=== PATIENT | male | born 1955 | race Caucasian/White ===

== ENCOUNTER → 2017-06-16 | Outpatient (CLI) | payer MEDICARE, OTHER ==
[2017-06-16 11:26] LABS: Basophils # (A) 0.1 k/uL (0-0.2); Basophils % (A) 1 %; CH 32.9; CHCM 34.1; Eosinophils # (A) 0.1 k/uL (0-0.7); Eosinophils % (A) 2 %; HCT 44.5 % (39.0-53.0); HDW 2.41; Luc # (Auto) 0.11; Luc % (Auto) 2; Lymphocytes # (A) 1.2 k/uL (1.0-4.8); Lymphocytes % (A) 17 %; MCH 32.7 pg (25.0-35.0); MCHC 33.8 g/dL (31.0-37.0); MCV 96.8 fL (80.0-100.0); Mean Platelet Volume 6.8; Monocytes # (A) 0.5 k/uL (0-1.0); Monocytes % (A) 7 %; Neutrophils # (A) 5.1 k/uL (1.3-7.7); Neutrophils % (A) 72 %; WBC (Perox) 7.21
[2017-06-16 11:32] LABS: ALT 34 U/L (21-72); AST 19 U/L (17-59); Alkaline Phosphatase 76 U/L (38-126); Anion Gap 10 mmol/L; Blood Urea Nitrogen 11 mg/dL (9-20); Calcium 9.1 mg/dL (8.4-10.2); Carbon Dioxide 27 mmol/L (22-30); Chloride 100 mmol/L (98-107); Cholesterol 123 mg/dL (<200); Glucose 102 mg/dL (74-99); HDL Cholesterol 42 mg/dL (40-60); Non-African American GFR(MDRD) >60 (>60 ml/min/1.73 sqM); Potassium 4.2 mmol/L (3.5-5.1); Sodium 137 mmol/L (137-145); Total Bilirubin 0.5 mg/dL (0.2-1.3); Total Protein 6.4 g/dL (6.3-8.2); Uric Acid 5.3 mg/dL (3.5-8.5)
[2017-06-16 11:33] LABS: Appearance,Urine Clear (Clear); Bilirubin,Urine Negative (Negative); Glucose,Urine (UA) Negative (Negative); Ketones,Urine Negative (Negative); Leukocyte Esterase,Urine Negative (Negative); Nitrite,Urine Negative (Negative); Protein,Urine Negative (Negative); Specific Gravity,Urine 1.004 (1.001-1.035); UA Billing (MACRO vs. MICRO) CHEM; Urobilinogen,Urine <2.0 mg/dL (<2.0)
== END | disposition home or self-care (01) ==
LOC: LABWHC1 10:52
PROVIDERS: ATTEND Internal Medicine
DX: M10.9 Gout, unspecified (principal); I10 Essential (primary) hypertension
CPT/HCPCS: 36415; 80053; 80061; 81003; 84550; 85025

== ENCOUNTER → 2017-07-25 | Outpatient (CLI) | payer MEDICARE, OTHER ==
[2017-07-25 09:40] LABS: Appearance,Urine Clear (Clear); Bilirubin,Urine Negative (Negative); Glucose,Urine (UA) Negative (Negative); Ketones,Urine Negative (Negative); Leukocyte Esterase,Urine Negative (Negative); Nitrite,Urine Negative (Negative); PH, Urine 6.5 (5.0-8.0); Protein,Urine Negative (Negative); Specific Gravity,Urine 1.005 (1.001-1.035); UA Billing (MACRO vs. MICRO) CHEM; Urobilinogen,Urine <2.0 mg/dL (<2.0)
[2017-07-25 09:41] LABS: Basophils # (A) 0.1 k/uL (0-0.2); Basophils % (A) 1 %; CH 32.3; CHCM 33.8; Eosinophils # (A) 0.2 k/uL (0-0.7); Eosinophils % (A) 3 %; HCT 44.9 % (39.0-53.0); HDW 2.24; HGB 14.9 gm/dL (13.0-17.5); Luc # (Auto) 0.11; Luc % (Auto) 2; Lymphocytes # (A) 1.6 k/uL (1.0-4.8); Lymphocytes % (A) 23 %; MCH 31.9 pg (25.0-35.0); MCHC 33.2 g/dL (31.0-37.0); MCV 96.1 fL (80.0-100.0); Mean Platelet Volume 7.3; Monocytes # (A) 0.5 k/uL (0-1.0); Monocytes % (A) 8 %; Neutrophils # (A) 4.6 k/uL (1.3-7.7); Neutrophils % (A) 65 %; RBC 4.68 m/uL (4.30-5.90); RDW 13.4 % (11.5-15.5); WBC 7.1 k/uL (3.8-10.6); WBC (Perox) 7.15
[2017-07-25 09:54] LABS: INR 1.1 (<1.2); Partial Thromboplastin Time 26.4 sec (22.0-30.0); Prothrombin Time 11.2 sec (9.0-12.0)
[2017-07-25 10:07] LABS: ALT 42 U/L (21-72); AST 22 U/L (17-59); Alkaline Phosphatase 85 U/L (38-126); Anion Gap 8 mmol/L; Blood Urea Nitrogen 10 mg/dL (9-20); Calcium 9.2 mg/dL (8.4-10.2); Carbon Dioxide 29 mmol/L (22-30); Chloride 99 mmol/L (98-107); Glucose 102 mg/dL (74-99); Non-African American GFR(MDRD) >60 (>60 ml/min/1.73 sqM); Sodium 136 mmol/L (137-145); Total Bilirubin 0.6 mg/dL (0.2-1.3); Total Protein 6.1 g/dL (6.3-8.2)
--- NOTE | 2017-07-25 12:05 | XR ---
EXAMINATION TYPE: XR chest 2V DATE OF EXAM: 07/25/2017 COMPARISON: Prior chest x-ray 11/22/2014 HISTORY: Preop TECHNIQUE: Frontal and lateral views of the chest are obtained. FINDINGS: There is no focal air space opacity, pleural effusion, or pneumothorax seen. The cardiac silhouette size is within normal limits. The osseous structures are intact. Surgical clips present in the right upper quadrant. IMPRESSION: No acute cardiopulmonary process.
== END | disposition home or self-care (01) ==
LOC: LABPAT 08:41
PROVIDERS: ATTEND Orthopaedic Surgery Orthopaedic Surgery of the Spine
DX: Z01.818 Encounter for other preprocedural examination (principal); M48.00 Spinal stenosis, site unspecified; E11.65 Type 2 diabetes mellitus with hyperglycemia; Z79.01 Long term (current) use of anticoagulants; Z01.812 Encounter for preprocedural laboratory examination
CPT/HCPCS: 36415; 71020; 80053; 81003; 83036; 85025; 85610; 85730; 86850; 86900; 86901; 87070

== ENCOUNTER 2020-11-06 15:43 | Inpatient (IN) | payer MEDICARE, OTHER ==
[2020-11-06] MEDS ORDERED: NALOXONE 0.4 MG/ML 1 ML VIAL IV PRN (19:53)
[2020-11-06] MEDS ORDERED: HYDROmorphone 0.5 MG/0.5 ML SYRINGE IVP PRN (19:55)
[2020-11-06] MEDS ORDERED: TEMAZEPAM 15 MG CAP PO PRN (19:55)
[2020-11-06] MEDS ORDERED: ALPRAZolam 0.25 MG TAB PO PRN (19:55)
[2020-11-06] MEDS ORDERED: HYDROcodone/APAP 5-325MG 1 EACH TAB PO PRN (19:55)
[2020-11-06 20:10] LABS: Glucose,Whole Blood 155 mg/dL (75-99)
[2020-11-06 20:49] LABS: Basophils # (A) 0.1 k/uL (0-0.2); Basophils % (A) 1 %; Eosinophils # (A) 0.1 k/uL (0-0.7); Eosinophils % (A) 1 %; HCT 46.2 % (39.0-53.0); Lymphocytes # (A) 1.6 k/uL (1.0-4.8); Lymphocytes % (A) 15 %; MCH 32.1 pg (25.0-35.0); MCHC 34.6 g/dL (31.0-37.0); Mean Platelet Volume 6.6; Monocytes # (A) 0.7 k/uL (0-1.0); Monocytes % (A) 7 %; Neutrophils # (A) 8.3 k/uL (1.3-7.7); Neutrophils % (A) 77 %; Platelet Count 265 k/uL (150-450); RBC 4.96 m/uL (4.30-5.90); RDW 13.1 % (11.5-15.5); WBC 10.9 k/uL (3.8-10.6)
[2020-11-06] MEDS: INSULIN ASPART (NovoLOG) 100 UNIT/ML VIAL SQ SCH (20:57)
[2020-11-06 20:58] LABS: ALT 24 U/L (4-49); AST 21 U/L (17-59); African American GFR (CKD) >90 (>60 ml/min/1.73 sqM); Albumin 3.8 g/dL (3.5-5.0); Albumin/Globulin Ratio 1.5; Alkaline Phosphatase 97 U/L (38-126); Amylase 43 U/L (30-110); Anion Gap 7 mmol/L; Blood Urea Nitrogen 11 mg/dL (9-20); Calcium 9.1 mg/dL (8.4-10.2); Carbon Dioxide 31 mmol/L (22-30); Chloride 97 mmol/L (98-107); Globulin 2.5 g/dL; Glucose 147 mg/dL (74-99); Lipase 80 U/L (23-300); Non-African American GFR(CKD) 82 (>60 ml/min/1.73 sqM); Potassium 3.8 mmol/L (3.5-5.1); Sodium 135 mmol/L (137-145); Total Bilirubin 0.7 mg/dL (0.2-1.3); Total Protein 6.3 g/dL (6.3-8.2)
[2020-11-06 21:09] LABS: Creatine Kinase MB 2.3 ng/mL (0.0-2.4); Troponin I <0.012 ng/mL (0.000-0.034)
--- NOTE | 2020-11-06 21:53 | HP ---
HISTORY AND PHYSICAL DATE OF SERVICE: 11/06/2020 CHIEF COMPLAINT: Chest pain. HISTORY OF PRESENT ILLNESS: This 64-year-old gentleman with a past medical history of multiple medical problems, including diabetes mellitus, hypertension, history of musculoskeletal disorder, history of gout, history of hypothyroidism, history of back surgery, cholecystomy, being followed by Dr. Del Rosario in the outpatient setting, was complaining of chest pain. The patient's chest pain was felt in the anterior part of the chest and was unrelenting, according to him. The patient went to [facility]. Apparently a stress test was done which was positive. The patient was seen by Dr. Saldana previously. A cardiac catheterization was not done, but the patient would like to stay with the cardiology group in the area. Dr. Escobar, the hospitalist from [facility], called me over the phone and the patient was directly transferred to [facility] for further evaluation and treatment at this time. There is no history of any fever, rigor or chills. No history of headache, loss of consciousness, seizures at this time. PAST MEDICAL HISTORY: Diabetes mellitus, hypertension, musculoskeletal disorder, hypothyroidism, gout. HOME MEDICATIONS: Glipizide, zyloprim, Senokot, Invega, Lopressor, Zestoretic, Tradjenta, Motrin, [place], Neurontin, Cogentin, aspirin. Medications are not confirmed. The doses are reviewed. ALLERGIES: IODINATED CONTRAST DYES. FAMILY HISTORY: History of coronary artery disease. SOCIAL HISTORY: No history of smoking. No history of alcohol intake. REVIEW OF SYSTEMS: ENT: No diminished hearing. No diminished vision. CARDIOVASCULAR SYSTEM: As mentioned earlier. RESPIRATORY SYSTEM: As mentioned earlier. GI: No nausea, vomiting, diarrhea. : No dysuria or retention. NERVOUS SYSTEM: No numbness, weakness. ALLERGY/IMMUNOLOGY: No asthma, hayfever. MUSCULOSKELETAL: As mentioned earlier. HEMATOLOGY/ONCOLOGY: No history of anemia. ENDOCRINE: As mentioned earlier. CONSTITUTIONAL: As mentioned earlier. DERMATOLOGY: Negative. RHEUMATOLOGY: Negative. PSYCHIATRY: As mentioned earlier. PHYSICAL EXAMINATION: Patient is alert, oriented x3. Pulse 95, blood pressure 136/83, respiration 19, temperature 98.1, pulse ox 97% on room air. HEENT: Conjunctivae normal. NECK: No jugular venous distention. CARDIOVASCULAR SYSTEM: S1, S2 muffled. RESPIRATORY SYSTEM: Breath sounds diminished at the bases. No rhonchi. No crackles. ABDOMEN: Soft, obese, non-tender. No mass palpable. LEGS: No edema. No swelling. NERVOUS SYSTEM: Higher functions as mentioned earlier. Moves all 4 limbs. No focal motor or sensory deficit. LYMPHATICS: No lymph node palpable in neck, axillae or groin. SKIN: No ulcer, rash, bleeding. JOINTS: No active deforming arthropathy. LABS: Labs are awaited at this time. ASSESSMENT: 1. Chest pain, possible unstable angina. 2. Positive stress test recently. 3. Diabetes mellitus, type 2. 4. Hypertension. 5. History of degenerative joint disease. 6. Hypothyroidism. 7. History of gout. 8. History of back surgery. 9. History of cholecystectomy. 10.History of laminectomy. 11.History of schizophrenia. 12.History of paranoid delusions. 13.Obesity. RECOMMENDATIONS AND DISCUSSION: In this 64-year-old gentleman who presented with multiple complex medical issues, we will monitor the patient closely, continue the current medications, continue symptomatic treatment. Otherwise, we will rule out myocardial infarction and cardiology consultation, possible cardiac cath. The home medications will be ordered once they are confirmed. Prognosis guarded because of the multiple complex medical issues. Further recommendations to follow. A copy of this dictation is being forwarded to Dr. Del Rosario, who is the primary physician. MMODL / IJN: [id number] /
[2020-11-06 22:16] LABS: Appearance,Urine Clear (Clear); Bilirubin,Urine Negative (Negative); Blood,Urine Negative (Negative); Color,Urine Light Yellow; Glucose,Urine (UA) Negative (Negative); Ketones,Urine Negative (Negative); Leukocyte Esterase,Urine Negative (Negative); Nitrite,Urine Negative (Negative); Protein,Urine Negative (Negative); Specific Gravity,Urine 1.009 (1.001-1.035); Urobilinogen,Urine <2.0 mg/dL (<2.0)
[2020-11-07] MEDS ORDERED: ACETAMINOPHEN TAB 325 MG TAB PO PRN (00:44)
[2020-11-07] MEDS ORDERED: NITROGLYCERIN SL TABS 0.4 MG TAB SUBLINGUAL PRN ×2 (00:44→10:04)
[2020-11-07] MEDS ORDERED: IBUPROFEN 800 MG TAB PO PRN (01:00)
[2020-11-07] MEDS ORDERED: AMOXIC-POT CLAV 875-125MG 1 EACH TAB PO SCH (07:00)
[2020-11-07] MEDS ORDERED: PANTOPRAZOLE 40 MG TABLET PO SCH (07:30)
[2020-11-07 07:34] LABS: Glucose,Whole Blood 144 mg/dL (75-99)
[2020-11-07] MEDS ORDERED: MAGNESIUM HYDROXIDE 2,400 MG/10 ML CUP PO PRN (09:00)
[2020-11-07] MEDS ORDERED: polyethylene glycoL 3350 17 GM POWD.PACK PO PRN (09:00)
[2020-11-07] MEDS ORDERED: glipiZIDE 5 MG TAB PO SCH (09:00)
[2020-11-07] MEDS ORDERED: ASPIRIN 81 MG PO SCH ×2 (09:00)
[2020-11-07] MEDS ORDERED: LISINOPRIL-HCTZ 20-12.5 MG 1 EACH TAB PO SCH (09:00)
[2020-11-07] MEDS ORDERED: allopurinoL 300 MG TAB PO SCH (09:00)
[2020-11-07] MEDS ORDERED: LINAGLIPTIN 5 MG TABLET PO SCH (09:00)
[2020-11-07] MEDS ORDERED: PALIPERIDONE 3 MG TAB.ER.24 PO SCH (09:00)
[2020-11-07] MEDS ORDERED: LORATADINE 10 MG TAB PO SCH (09:00)
[2020-11-07] MEDS ORDERED: SENNOSIDES 8.6 MG TAB PO SCH (09:00)
[2020-11-07] MEDS ORDERED: GABAPENTIN 100 MG CAP PO SCH (09:00)
[2020-11-07] MEDS ORDERED: BENZTROPINE MESYLATE 1 MG TAB PO SCH (09:00)
[2020-11-07 09:04] LABS: African American GFR (CKD) 104.2 (60.0-200.0); Anion Gap 9.7 mmol/L (4.00-12.00); BUN/Creat Ratio 13.33 Ratio (12.00-20.00); Calcium 8.9 mg/dL (8.7-10.3); Carbon Dioxide 26.3 mmol/L (21.6-31.8); Non-African American GFR(CKD) 89.9 (60.0-200.0)
[2020-11-07 09:17] LABS: Basophils # (A) 0.09 X 10*3/uL (0.00-0.10); Basophils % (A) 0.7 %; Eosinophils # (A) 0.21 X 10*3/uL (0.04-0.35); Eosinophils % (A) 1.7 %; HCT 46.5 % (39.6-50.0); HGB 15.6 g/dL (13.0-17.0); Lymphocytes # (A) 2.64 X 10*3/uL (0.90-5.00); Lymphocytes % (A) 21.8 %; MCH 31.5 pg (27.0-32.0); MCHC 33.5 g/dL (32.0-37.0); MCV 93.9 fL (80.0-97.0); Mean Platelet Volume 9.5 fL (9.5-12.2); Monocytes % (A) 8.3 %; Neutrophils # (A) 8.12 X 10*3/uL (1.80-7.70); Neutrophils % (A) 67.3 %; Platelet Count 298 X 10*3/uL (140-440); RBC 4.95 X 10*6/uL (4.40-5.60); RDW 12.6 % (11.5-14.5); WBC 12.09 X 10*3/uL (4.50-10.00)
[2020-11-07] MEDS ORDERED: ALPRAZolam 0.5 MG TAB PO PRN (10:04)
[2020-11-07] MEDS ORDERED: ALPRAZolam 0.25 MG TAB PO PRN (10:04)
[2020-11-07] MEDS ORDERED: ASPIRIN 325 MG TAB PO STA (10:04)
[2020-11-07] MEDS ORDERED: SODIUM CHLORIDE 0.9% 1,000 ML in EMPTY BAG 1 BAG IV ONE (10:04)
[2020-11-07] MEDS ORDERED: ATORVASTATIN 80 MG TAB PO STA (10:04)
[2020-11-07] MEDS: INSULIN ASPART (NovoLOG) 100 UNIT/ML VIAL SQ SCH ×2 (10:16→12:37)
--- NOTE | 2020-11-07 10:42 | P.CRDCN ---
History of Present Illness Consult date: 11/07/20 History of present illness: CHIEF COMPLAINT: Chest pain HISTORY OF PRESENT ILLNESS: This is a 64-year-old male with a past medical history significant for schizophrenia, hypertension, hyperlipidemia, and diabetes mellitus. Patient used to follow in the office with Dr. Saldana. We have been asked to see the patient in consultation for chest pain. Patient originally presented to [facility] with the complaint of chest pain. Patient states he began having chest pain 2 days ago. He states the pain was in the middle of his chest and was sharp. He denied any other associated symptoms. He states the pain was fairly constant over the last 2 days. At the time of examination this morning, the patient reports mild chest discomfort. Patient underwent a Lexiscan stress test at [facility] revealing evidence of pharmacological-induced stress ischemia of the anterior wall and estimated ejection fraction of 71%. Telemetry tracings review sinus mechanism. Laboratory data reveals WBC 12.0. Hemoglobin 15.6. Platelet count 298. Sodium 135. Potassium 4.0. BUN 12. Creatinine 0.9. Magnesium 2.0. Troponin negative 1. Current home cardiac medications include metoprolol 25 mg at night, lisinopril-hctz 20-12.5mg daily, Lipitor 10 mg daily, and aspirin 81 mg daily. REVIEW OF SYSTEMS: At the time of my exam: CONSTITUTIONAL: Denies fever or chills. HEENT: Denies blurred vision, vision changes, or eye pain. Denies hemoptysis CARDIOVASCULAR: Denies chest pain, orthopnea, PND or palpitations RESPIRATORY: No shortness of breath. GASTROINTESTINAL: Denies abdominal pain. Denies nausea or vomiting. HEMATOLOGIC: Denies bleeding disorders. GENITOURINARY: Denies any blood in urine. SKIN: Denies pruitis. Denies rash. PHYSICAL EXAM: VITAL SIGNS: Reviewed. GENERAL: Well-developed in no acute distress. HEENT: Head is normocephalic. Pupils are equal, round. Sclerae anicteric. Mucous membranes of the mouth are moist. Neck supple. No JVD or thyromegaly LUNGS: Respirations even and unlabored. Lungs essentially clear to auscultation bilaterally. HEART: Regular rate and rhythm. S1 and S2 heard. ABDOMEN: Soft. Nondistended. Nontender. EXTREMITIES: Normal range of motion. No clubbing or cyanosis. Peripheral pulses intact. No lower extremity edema NEUROLOGIC: Awake and alert. Oriented x 3. ASSESSMENT: Chest pain with abnormal stress test revealing ischemia of anterior wall Hypertension Hyperlipidemia Diabetes mellitus Schizophrenia Morbid obesity BMI 44.7 PLAN: Resume home cardiac medications Patient to undergo cardiac cath today with Dr. Gill Nurse practitioner note has been reviewed by physician. Signing provider agrees with the documented findings, assessment, and plan of care. Past Medical History Past Medical History: Diabetes Mellitus, Hypertension, Musculoskeletal Disorder, Thyroid Disorder Additional Past Medical History / Comment(s): hx. gout History of Any Multi-Drug Resistant Organisms: None Reported Past Surgical History: Back Surgery, Cholecystectomy Additional Past Surgical History / Comment(s): epidural pain procedures, 11/30/14 laminectomy Past Anesthesia/Blood Transfusion Reactions: No Reported Reaction Past Psychological History: Schizophrenia Additional Psychological History / Comment(s): paranoid delusions Smoking Status: Former smoker Past Alcohol Use History: None Reported Past Drug Use History: None Reported - Past Family History Father Family Medical History: Coronary Artery Disease (CAD) Mother Family Medical History: Hypertension Medications and Allergies Home Medications Medication Instructions Recorded Confirmed Type Benztropine Mesylate [Cogentin] 2 mg PO BID 11/28/14 11/06/20 History Gabapentin [Neurontin] 100 mg PO TID 11/28/14 11/06/20 History Ibuprofen [Motrin] 800 mg PO Q8H PRN 11/28/14 11/06/20 History Metoprolol Tartrate [Lopressor] 25 mg PO HS 11/28/14 11/06/20 History Sennosides [Senokot] 8.6 mg PO BID 11/28/14 11/06/20 History allopurinoL [Zyloprim] 300 mg PO DAILY 11/28/14 11/06/20 History Aspirin [Adult Low Dose Aspirin EC] 81 mg PO DAILY 07/28/17 11/06/20 History Linagliptin [Tradjenta] 5 mg PO DAILY 07/28/17 11/06/20 History Acetaminophen [Tylenol] 650 mg PO Q4-6H PRN 11/06/20 11/06/20 History Amoxic-Pot Clav 875-125Mg 1 tab PO BID@0700,1900 11/06/20 11/06/20 History [Augmentin 875-125] Atorvastatin Calcium [Lipitor] 10 mg PO HS 11/06/20 11/06/20 History Cholecalciferol [Vitamin D3 (25 50 mcg PO HS 11/06/20 11/06/20 History Mcg = 1000 Iu)] Ibuprofen [Motrin Ib] 200 - 400 mg PO Q6H PRN 11/06/20 11/06/20 History Lisinopril-Hctz 20-12.5 mg 1 tab PO DAILY 11/06/20 11/06/20 History [Zestoretic 20-12.5] Loperamide HCl [Imodium A-D] 2 - 4 mg PO QID PRN 11/06/20 11/06/20 History Loratadine 10 mg PO DAILY 11/06/20 11/06/20 History Magnesium Hydroxide [Milk of 2,400 mg PO DAILY PRN 11/06/20 11/06/20 History Magnesia] Nitroglycerin Sl Tabs [Nitrostat] 0.4 mg SL Q5M PRN 11/06/20 11/06/20 History Paliperidone [Invega] 9 mg PO DAILY 11/06/20 11/06/20 History glipiZIDE XL [Glucotrol Xl] 10 mg PO DAILY 11/06/20 11/06/20 History polyethylene glycoL 3350 [Miralax] 17 gm PO DAILY PRN 11/06/20 11/06/20 History Allergies Allergy/AdvReac Type Severity Reaction Status Date / Time Iodinated Contrast Media Allergy Anaphylaxis Verified 11/06/20 19:45 [Iodinated Contrast- Oral and IV Dye] Physical Exam Vitals: Vital Signs Temp Pulse Resp BP Pulse Ox 11/07/20 07:00 97.4 F L 90 18 151/83 97 11/07/20 02:00 98.3 F 79 16 143/76 95 11/06/20 20:00 98.2 F 81 16 131/93 98 11/06/20 18:34 98.1 F 95 19 136/83 97 Intake and Output 11/06/20 11/07/20 11/07/20 22:59 06:59 14:59 Output Total 300 Balance -300 Output: Urine 300 Other: Voiding Method Toilet Toilet Toilet # Voids 1 1 Weight 149.5 kg Results 11/07/20 04:44 11/07/20 04:44 Cardiac Enzymes 11/06/20 11/06/20 Range/Units 20:10 20:10 AST 21 (17-59) U/L CK-MB (CK-2) 2.3 (0.0-2.4) ng/mL Troponin I <0.012 (0.000-0.034) ng/mL Coagulation 11/06/20 Range/Units 20:10 PT 11.0 (9.0-12.0) sec CBC 11/06/20 11/07/20 Range/Units 20:10 04:44 WBC 10.9 H 12.09 H (3.8-10.6) k/uL RBC 4.96 4.95 (4.30-5.90) m/uL Hgb 16.0 15.6 (13.0-17.5) gm/dL Hct 46.2 46.5 (39.0-53.0) % Plt Count 265 298 (150-450) k/uL Comprehensive Metabolic Panel 11/06/20 11/07/20 Range/Units 20:10 04:44 Sodium 135 L 135 (137-145) mmol/L Potassium 3.8 4.0 (3.5-5.1) mmol/L Chloride 97 L 99 (98-107) mmol/L Carbon Dioxide 31 H 26.3 (22-30) mmol/L BUN 11 12.0 (9-20) mg/dL Creatinine 0.98 0.9 (0.66-1.25) mg/dL Glucose 147 H 132 H (74-99) mg/dL Calcium 9.1 8.9 (8.4-10.2) mg/dL AST 21 (17-59) U/L ALT 24 (4-49) U/L Alkaline Phosphatase 97 (38-126) U/L Total Protein 6.3 (6.3-8.2) g/dL Albumin 3.8 (3.5-5.0) g/dL Current Medications Generic Name Dose Route Start Last Admin Trade Name Freq PRN Reason Stop Dose Admin Acetaminophen 650 mg 11/07/20 00:44 Acetaminophen Tab 325 Mg Tab PO Q6H PRN Fever and/ or Pain Hydrocodone Bitart/Acetaminophen 1 each 11/06/20 19:55 Hydrocodone/Apap 5-325mg 1 Each Tab PO Q6HR PRN Pain Allopurinol 300 mg 11/07/20 09:00 Allopurinol 300 Mg Tab PO DAILY NANDINI Alprazolam 0.25 mg 11/07/20 10:04 Alprazolam 0.25 Mg Tab PO Q6HR PRN Mild Anxiety Alprazolam 0.5 mg 11/07/20 10:04 Alprazolam 0.5 Mg Tab PO Q6HR PRN Moderate Anxiety Amoxicillin/Clavulanate Potassium 1 each 11/07/20 07:00 11/07/20 06:16 Amoxic-Pot Clav 875-125mg 1 Each Tab PO 1 each BID@0700,1900 [facility] Administration Aspirin 81 mg 11/07/20 09:00 11/07/20 10:17 Aspirin 81 Mg PO Not Given DAILY [facility] Atorvastatin Calcium 10 mg 11/07/20 21:00 Atorvastatin 10 Mg Tab PO HS [facility] Benztropine Mesylate 2 mg 11/07/20 09:00 Benztropine Mesylate 1 Mg Tab PO BID [facility] Cholecalciferol 50 mcg 11/07/20 21:00 Cholecalciferol 25 Mcg (1000 Iu) Tablet PO HS [facility] Gabapentin 100 mg 11/07/20 09:00 Gabapentin 100 Mg Cap PO TID [facility] Glipizide 5 mg 11/07/20 09:00 Glipizide 5 Mg Tab PO BID [facility] Lisinopril/HCTZ 1 each 11/07/20 09:00 Lisinopril-Hctz 20-12.5 Mg 1 Each Tab PO DAILY [facility] Hydromorphone HCl 0.5 mg 11/06/20 19:55 Hydromorphone 0.5 Mg/0.5 Ml Syringe IVP Q6HR PRN Severe Pain Sodium Chloride 1,000 ml/ IV 1,000 mls @ 149.5 mls/hr 11/07/20 10:04 Solution IV 11/07/20 16:45 .Q6H42M ONE 1 ML/KG/HR Heparin Sodium (Porcine) 10, 1,001 mls @ 999 mls/hr 11/08/20 07:00 000 unit/ Sodium Chloride IRRIGATION 11/08/20 23:00 ONCE PRN INTRA-OP Heparin Sodium (Porcine) 2,500 250.5 mls @ 250 mls/hr 11/08/20 07:00 unit/ Sodium Chloride IRRIGATION 11/08/20 23:00 ONCE PRN INTRA-OP Ibuprofen 800 mg 11/07/20 01:00 Ibuprofen 800 Mg Tab PO Q8H PRN Pain Insulin Aspart 0 unit 11/06/20 21:00 11/07/20 10:16 Insulin Aspart (Novolog) 100 Unit/Ml Vial SQ Not Given ACHS [facility] Protocol Linagliptin 5 mg 11/07/20 09:00 Linagliptin 5 Mg Tablet PO DAILY [facility] Loratadine 10 mg 11/07/20 09:00 Loratadine 10 Mg Tab PO DAILY [facility] Magnesium Hydroxide 2,400 mg 11/07/20 09:00 Magnesium Hydroxide 2,400 Mg/10 Ml Cup PO DAILY PRN Constipation Metoprolol Tartrate 25 mg 11/07/20 21:00 Metoprolol Tartrate 25 Mg Tab PO HS [facility] Naloxone HCl 0.2 mg 11/06/20 19:53 Naloxone 0.4 Mg/Ml 1 Ml Vial IV Q2M PRN Opioid Reversal Nitroglycerin 0.4 mg 11/07/20 00:44 Nitroglycerin Sl Tabs 0.4 Mg Tab SUBLINGUAL Q5M PRN Chest Pain Paliperidone 9 mg 11/07/20 09:00 Paliperidone 3 Mg Tab.Er.24 PO DAILY [facility] Pantoprazole Sodium 40 mg 11/07/20 07:30 Pantoprazole 40 Mg Tablet PO AC-BRKFST [facility] Polyethylene Glycol 17 gm 11/07/20 09:00 Polyethylene Glycol 3350 17 Gm Powd.Pack PO DAILY PRN Constipation Senna 8.6 mg 11/07/20 09:00 Sennosides 8.6 Mg Tab PO BID [facility] Temazepam 15 mg 11/06/20 19:55 Temazepam 15 Mg Cap PO HS PRN Insomnia Intake and Output 11/06/20 11/07/20 11/07/20 22:59 06:59 14:59 Output Total 300 Balance -300 Output: Urine 300 Other: Voiding Method Toilet Toilet Toilet # Voids 1 1 Weight 149.5 kg 11/07/20 04:44 11/07/20 04:44
[2020-11-07] MEDS ORDERED: IV FLUID CONTINUATION 900 ML IV ONE (11:04)
[2020-11-07] MEDS ORDERED: methylPREDNISolone SOD SUCCI 125 MG/2 ML VIAL IVP ONE (11:05)
[2020-11-07] MEDS ORDERED: diphenhydrAMINE 50 MG/ML 1 ML VIAL IVP ONE (11:05)
[2020-11-07] MEDS ORDERED: fentaNYL (PF) 50 MCG/ML 2 ML AMP IVP ONE (11:08)
[2020-11-07] MEDS ORDERED: MIDAZOLAM 2 MG/2 ML VIAL IVP ONE (11:08)
[2020-11-07] MEDS ORDERED: LIDOCAINE 1% INJ 10MG/ML (20 ML MDV) SQ ONE (11:10)
[2020-11-07] MEDS: VERAPAMIL SYRINGE (5 MG/10 ML) INTRAARTER ONE ×2 (11:12→11:18)
[2020-11-07] MEDS ORDERED: HEPARIN SODIUM 1,000 UN/ML (10ML VL) IV ONE (11:16)
[2020-11-07] MEDS ORDERED: IOPAMIDOL-370 125ML BTL INJ ONE (11:18)
[2020-11-07] MEDS ORDERED: RX INFO: IV CONTRAST WAS GIVEN 1 EACH MISC MISCELLANE PRN (11:26)
[2020-11-07] MEDS ORDERED: SODIUM CHLORIDE 0.9% 1,000 ML IV SCH (11:30)
[2020-11-07 11:41] VITALS: RESP 16
[2020-11-07 11:43] LABS: Glucose,Whole Blood 174 mg/dL (75-99)
--- NOTE | 2020-11-07 11:58 | CC ---
CARDIAC CATHETERIZATION REPORT DATE OF SERVICE: November 07, 2020 PERFORMING PHYSICIAN: Angelito Gill MD. PROCEDURE PERFORMED: Selective right and left coronary angiogram. INDICATION: This is a 64-year-old gentleman with diabetes and hypertension and dyslipidemia who was admitted with chest discomfort and underwent myocardial perfusion imaging stress test and that came into be abnormal and because of that, a heart catheterization was advised. APPROACH: Right radial artery. COMPLICATION: None. LEVEL OF SEDATION: Moderate with sedation length of 11 minutes. PROCEDURE DESCRIPTION: After obtaining an informed consent, the patient was brought to the cardiac cardiac cath rn. The right radial artery was cannulated using micropuncture technique. The micropuncture wire passed easily then I placed a 6-Indian sheath at the right radial artery. After that I did give the patient 2 mg of verapamil IA and 10,000 units of heparin IV. Selective right and left coronary angiogram performed with JR4 and JL3.5 catheters. The procedure was completed without any complication. SELECTIVE CORONARY ANGIOGRAM: 1. The RCA is a large caliber vessel. It is a dominant vessel and appeared to be angiographically normal. 2. The left main is angiographically normal. It bifurcates into left circumflex and left anterior descending artery. 3. The left circumflex is a large caliber vessel. It is a nondominant vessel. The left circumflex is angiographically normal. In the proximal portion, it gives rise into first OM branch which is a moderate caliber vessel, seems to be angiographically normal and the second OM branch which is a large caliber vessel bifurcates into 2 subbranches both appeared to be angiographically normal. 4. The LAD is a large caliber vessel. The LAD is angiographically normal. In the proximal to midportion, it gives rise into a large diagonal branch which seems to be angiographically normal. CONCLUSION: Normal coronary angiogram. POSTPROCEDURE MANAGEMENT: 1. Medical treatment. 2. Follow up with the patient. MMODL / IJN: [id number] /
[2020-11-07 15:51] VITALS: BP 125/76; PULSE 88; TEMP 98.3
[2020-11-07] MEDS ORDERED: CHOLECALCIFEROL 25 MCG (1000 IU) TABLET PO SCH (21:00)
[2020-11-07] MEDS ORDERED: ATORVASTATIN 10 MG TAB PO SCH (21:00)
[2020-11-07] MEDS ORDERED: METOPROLOL TARTRATE 25 MG TAB PO SCH (21:00)
--- NOTE | 2020-11-07 22:05 | DS ---
DISCHARGE SUMMARY DATE OF SERVICE: 11/07/2020 FINAL DIAGNOSES: 1. Chest pain, possible unstable angina, status post cardiac catheterization showing a normal coronary angiogram. 2. Positive stress test recently. 3. Diabetes mellitus, type 2. 4. Hypertension. 5. History of degenerative joint disease. 6. Hypothyroidism. 7. History of gout. 8. History of back surgery. 9. History of cholecystectomy. 10.History of laminectomy. 11.History of schizophrenia. 12.History of paranoid delusions. 13.Obesity. DISCHARGE DISPOSITION: The patient will be discharged in stable condition with guarded prognosis. HISTORY OF PRESENT ILLNESS: This 64-year-old gentleman with a past medical history of multiple medical problems was admitted to [facility] with complaints of chest pain. A stress test apparently was positive and the patient was transferred to [facility]. Dr. Gill performed a cardiac catheterization which showed normal coronary arteries. The possibility of spasm was considered. The patient is already on aspirin. The patient will be discharged in stable condition with guarded prognosis. On exam, vitals are stable. CARDIOVASCULAR SYSTEM: S1, S2 muffled. ABDOMEN: Soft. NERVOUS SYSTEM: No focal deficit. DISCHARGE ADVICE AND MEDICATIONS: 1. Diet is cardiac. 2. Activity limited until followup. 3. Follow up with Dr. Gill as recommended. 4. Follow up with primary physician in 2-3 days. 5. Ecotrin 81 mg daily. 6. Augmentin as before. 7. Cogentin 2 mg p.o. b.i.d. 8. Glucotrol XL 10 mg b.i.d. 9. Loperamide as before. 10.Invega 9 mg p.o. daily. 11.Lipitor 10 mg at bedtime. 12.Lopressor 20 mg at bedtime. 13.Loratadine 10 mg p.o. daily. 14.Magnesium oxide 2.4 mg p.o. daily. 15.MiraLAX p.r.n. 16.Motrin p.r.n. 17.Neurontin 100 mg t.i.d. 18.Nitrostat p.r.n. 19.Senokot 8.6 mg b.i.d. 20.Tradjenta 5 mg p.o. daily. 21.Tylenol p.r.n. 22.Vitamin D3 50 mcg p.o. at bedtime. 23.Lisinopril/hydrochlorothiazide 20/12.5 mg p.o. daily. 24.Zyloprim 300 mg p.o. daily. MMTABITHAL / CARLITON: [id number] / MTDD
[2020-11-08] MEDS ORDERED: HEPARIN SODIUM,PORCINE 10,000 UNIT in SODIUM CHLORIDE 0.9% 1,000 ML IRRIGATION PRN (07:00)
[2020-11-08] MEDS ORDERED: HEPARIN SODIUM,PORCINE 2,500 UNIT in SODIUM CHLORIDE 0.9% 250 ML IRRIGATION PRN (07:00)
== END 2020-11-07 17:01 | DRG 287 ==
LOC: EDSTATUS 16:09 → 6NMEDSUR 18:24 → OBSVTOIN 18:24
PROVIDERS: ADMIT Hospitalist; ATTEND Hospitalist
PROC: B2111ZZ Fluoroscopy of Multiple Coronary Arteries using Low Osmolar Contrast (ICD-10-PCS; principal; 2020-11-07 13:30)
DX: I20.0 Unstable angina (principal); Z68.41 Body mass index [BMI] 40.0-44.9, adult; E11.9 Type 2 diabetes mellitus without complications; I10 Essential (primary) hypertension; E03.9 Hypothyroidism, unspecified; M10.9 Gout, unspecified; M19.90 Unspecified osteoarthritis, unspecified site; F20.9 Schizophrenia, unspecified; F22 Delusional disorders; E78.5 Hyperlipidemia, unspecified; R94.39 Abnormal result of other cardiovascular function study; E66.01 Morbid (severe) obesity due to excess calories; E78.00 Pure hypercholesterolemia, unspecified; Z82.49 Family history of ischemic heart disease and other diseases of the circulatory system; Z87.891 Personal history of nicotine dependence; Z90.49 Acquired absence of other specified parts of digestive tract; Z79.82 Long term (current) use of aspirin; Z79.899 Other long term (current) drug therapy; Z79.84 Long term (current) use of oral hypoglycemic drugs; Z91.041 Radiographic dye allergy status; Z20.822 Contact with and (suspected) exposure to COVID-19
CPT/HCPCS: 80048; 80053; 81003; 82150; 82553; 83690; 83735; 84484; 85025; 85610; 87635; 93454

== ENCOUNTER 2025-03-01 13:33 | Emergency (ER) | payer MEDICARE, OTHER ==
--- NOTE | 2025-03-01 14:35 | ED ---
General Adult HPI - General Source: patient, RN notes reviewed Mode of arrival: wheelchair Limitations: no limitations <Carlos Mead - Last Filed: 03/01/25 14:35> <Logan Duran - Last Filed: 03/01/25 17:01> - General Stated complaint: Fall, Knee pain L Time Seen by Provider: 03/01/25 14:35 - History of Present Illness Initial comments: Quick note: 69-year-old male presented the ER for evaluation of a fall. Patient states he recently has been unsteady on his feet. He states today he lost his balance causing him to fall on his left knee. Patient states he "bumped" his forehead. He denies loss of consciousness or blood thinner use. No other reported injuries. (Carlos Mead) Dictation was produced using [employer] dictation software. please excuse any grammatical, word or spelling errors. Chief Complaint: 69-year-old male with left knee pain History of Present Illness: Patient 69-year-old male who states that earlier today lost his balance and fell onto his left knee. Patient able to ambulate with a slight limp. No other complaints. The ROS documented in this emergency department record has been reviewed and confirmed by me. Those systems with pertinent positive or negative responses have been documented in the HPI. All other systems are other negative and/or noncontributory. (Logan Duran) - Related Data Home Medications Medication Instructions Recorded Confirmed Benztropine Mesylate [Cogentin] 2 mg PO BID 11/28/14 11/06/20 Gabapentin [Neurontin] 100 mg PO TID 11/28/14 11/06/20 Ibuprofen [Motrin] 800 mg PO Q8H PRN 11/28/14 11/06/20 Metoprolol Tartrate [Lopressor] 25 mg PO HS 11/28/14 11/06/20 Sennosides [Senokot] 8.6 mg PO BID 11/28/14 11/06/20 allopurinoL [Zyloprim] 300 mg PO DAILY 11/28/14 11/06/20 Aspirin [Adult Low Dose Aspirin EC] 81 mg PO DAILY 07/28/17 11/06/20 Linagliptin [Tradjenta] 5 mg PO DAILY 07/28/17 11/06/20 Acetaminophen [Tylenol] 650 mg PO Q4-6H PRN 11/06/20 11/06/20 Amoxic-Pot Clav 875-125Mg 1 tab PO BID@0700,1900 11/06/20 11/06/20 [Augmentin 875-125] Atorvastatin Calcium [Lipitor] 10 mg PO HS 11/06/20 11/06/20 Cholecalciferol [Vitamin D3 (25 50 mcg PO HS 11/06/20 11/06/20 Mcg = 1000 Iu)] Ibuprofen [Motrin Ib] 200 - 400 mg PO Q6H PRN 11/06/20 11/06/20 Lisinopril-Hctz 20-12.5 mg 1 tab PO DAILY 11/06/20 11/06/20 [Zestoretic 20-12.5] Loperamide HCl [Imodium A-D] 2 - 4 mg PO QID PRN 11/06/20 11/06/20 Loratadine 10 mg PO DAILY 11/06/20 11/06/20 Magnesium Hydroxide [Milk of 2,400 mg PO DAILY PRN 11/06/20 11/06/20 Magnesia] Nitroglycerin Sl Tabs [Nitrostat] 0.4 mg SL Q5M PRN 11/06/20 11/06/20 Paliperidone [Invega] 9 mg PO DAILY 11/06/20 11/06/20 glipiZIDE XL [Glucotrol XL] 10 mg PO DAILY 11/06/20 11/06/20 polyethylene glycoL 3350 [Miralax] 17 gm PO DAILY PRN 11/06/20 11/06/20 Allergies Allergy/AdvReac Type Severity Reaction Status Date / Time Iodinated Contrast Media Allergy Anaphylaxis Verified 03/01/25 14:44 [Iodinated Contrast- Oral and IV Dye] Review of Systems ROS Other: All systems not noted in ROS Statement are negative. <Carlos Mead - Last Filed: 03/01/25 14:35> ROS Other: All systems not noted in ROS Statement are negative. <Logan Duran - Last Filed: 03/01/25 17:01> ROS Statement: Those systems with pertinent positive or pertinent negative responses have been documented in the HPI. Past Medical History Past Medical History: Diabetes Mellitus, Hypertension, Musculoskeletal Disorder, Thyroid Disorder Additional Past Medical History / Comment(s): hx. gout History of Any Multi-Drug Resistant Organisms: None Reported Past Surgical History: Back Surgery, Cholecystectomy Additional Past Surgical History / Comment(s): epidural pain procedures, 11/30/14 laminectomy Past Anesthesia/Blood Transfusion Reactions: No Reported Reaction Past Psychological History: Schizophrenia Additional Psychological History / Comment(s): paranoid delusions Smoking Status: Former smoker Past Alcohol Use History: None Reported Past Drug Use History: None Reported - Past Family History Father Family Medical History: Coronary Artery Disease (CAD) Mother Family Medical History: Hypertension <Carlos Mead - Last Filed: 03/01/25 14:35> General Exam <Carlos Mead - Last Filed: 03/01/25 14:35> <Logan Duran - Last Filed: 03/01/25 17:01> - General Exam Comments Initial Comments: Visual Physical Exam Vital signs reviewed General: Well-appearing, nontoxic, no acute distress. Head: Normocephalic, atraumatic Eyes: PERRLA, EOMI ENT: Airway patent Chest: Nonlabored breathing Skin: No visual rash, normal skin tone Neuro: Alert and oriented 3 Musculoskeletal: No gross abnormalities (Carlos Mead) General: Well-appearing, nontoxic, no acute distress. Head: Normocephalic, atraumatic Eyes: PERRLA, EOMI ENT: Airway patent Chest: Nonlabored breathing Skin: No visual rash, normal skin tone Neuro: Alert and oriented 3 Musculoskeletal: No gross abnormalities Left knee: Slight palpatory tenderness to the kneecap. No other issues. Normal gait (Logan Duran) Course Vital Signs 03/01/25 14:44 Temperature 97.7 F Pulse Rate 91 Respiratory 20 Rate Blood Pressure 106/70 O2 Sat by Pulse 99 Oximetry Medical Decision Making <Carlos Mead - Last Filed: 03/01/25 14:35> <Logan Duran - Last Filed: 03/01/25 17:01> - Medical Decision Making I performed the quick note portion of this chart. Electronically signed by Carlos Mead PA-C (Carlos Mead) Was pt. sent in by a medical professional or institution (Dr., PA, BUZZLE BUFFER, urgent care, hospital, or senior living...) When possible be specific @ -No Did you speak to anyone other than the patient for history (EMS, parent, family, police, friend...)? What history was obtained from this source @ -No Did you review nursing and triage notes (agree or disagree)? Why? @ -I reviewed and agree with nursing and triage notes Were old charts reviewed (outside hosp., previous admission, EMS record, old EKG, old radiological studies, urgent care reports/EKG's, senior living records)? Report findings @ -No old charts were reviewed Differential Diagnosis (chest pain, altered mental status, abdominal pain women, abdominal pain men, vaginal bleeding, musculoskeletal, weakness, fever, dyspnea, syncope, headache, dizziness, GI bleed, back pain, seizure, CVA, palpatations, mental health)? @ -Knee fracture, knee strain, knee sprain EKG interpreted by me (3pts min.). @ -None done X-rays interpreted by me (1pt min.). @ -Left knee x-ray is nonacute CT interpreted by me (1pt min.). @ -None done U/S interpreted by me (1pt. min.). @ -None done What testing was considered but not performed or refused? (CT, X-rays, U/S, labs)? Why? @ -None What meds were considered but not given or refused? Why? @ -None Was smoking cessation discussed for >3mins.? @ -No Were there social determinants of health that impacted care today? How? (Homelessness, low income, unemployed, alcoholism, drug addiction, transportation, low edu. Level, literacy, decrease access to med. care, custodial, rehab)? @ -No Was there de-escalation of care discussed even if they declined (Discuss DNR or withdrawal of care, Hospice)? DNR status @ -No What co-morbidities impacted this encounter? (DM, HTN, Smoking, COPD, CAD, Cancer, CVA, ARF, Chemo, Hep., AIDS, mental health diagnosis, sleep apnea, morbid obesity)? @ -None Was patient admitted / discharged? Hospital course, mention meds given and route, prescriptions, significant lab abnormalities, going to OR and other pertinent info. @ -69-year-old male with knee contusion. X-rays unremarkable. Vital signs stable. Ambulating with no complications. Patient discharged Did you discuss the management of the patient with other professionals (professionals i.e. , PA, BUZZLE BUFFER, lab, RT, psych nurse, social media director, learning support specialist, teacher, correction officer reformatory, mattress spring encaser)? Give summary @ -No Was critical care preformed (if so, how long)? @ -No Undiagnosed new problem with uncertain prognosis? @ -No Drug Therapy requiring intensive monitoring for toxicity (Heparin, Nitro, Insulin, Cardizem)? @ -No Were any procedures done? @ -No Diagnosis/symptom? Acute, or Chronic, or Acute on Chronic? Uncomplicated (without systemic symptoms) or Complicated (systemic symptoms)? @ -Knee contusion Side effects of treatment? @ -No Exacerbation, Progression, or Severe Exacerbation? @ -No Poses a threat to life or bodily function? How? (Chest pain, USA, IA, pneumonia, PE, COPD, DKA, ARF, appy, cholecystitis, CVA, Diverticulitis, Homicidal, Suicidal, threat to staff... and all critical care pts) @ -No (Logan Duran) Disposition <Carlos Mead - Last Filed: 03/01/25 14:35> Is patient prescribed a controlled substance at d/c from ED?: No Time of Disposition: 17:00 <Logan Duran - Last Filed: 03/01/25 17:01> Clinical Impression: Knee pain Disposition: HOME SELF-CARE Condition: Good Instructions (If sedation given, give patient instructions): Fall Prevention for Older Adults (ED) Referrals: Joseph Del Rosario MD [Primary Care Provider] - 1-2 days
--- NOTE | 2025-03-01 15:29 | XR ---
EXAMINATION TYPE: XR knee complete LT DATE OF EXAM: 03/01/2025 3:07 PM COMPARISON: None CLINICAL INDICATION: Male, 69 years old with history of fall; PHH, pain TECHNIQUE: 3 views FINDINGS: There is anterior soft tissue swelling. Suggestion of a trace joint effusion. No acute frac ture, subluxation, or dislocation is seen. IMPRESSION: Suggestion of some anterior soft tissue swelling and possible trace joint effusion. Clinically correl ate. Please ensure that there is appropriate functioning of the extensor mechanism. No acute osseous abnormality seen. [facility], Workstation: [email or web address], 03/01/2025 3:27 PM
[2025-03-01] MEDS: ACET/COD 300 MG/30 MG STARTER PACK 6 TAB BTL PO STA (17:08)
[2025-03-01 17:29] VITALS: BP 112/74; PULSE 84; RESP 18; TEMP 98.1
== END 2025-03-01 17:12 | disposition home or self-care (01) ==
LOC: EC 13:33
DX: M25.562 Pain in left knee (principal); Z87.891 Personal history of nicotine dependence; Z91.041 Radiographic dye allergy status; W01.0XXA Fall on same level from slipping, tripping and stumbling without subsequent striking against object, initial encounter
CPT/HCPCS: 99283